=== PATIENT | female | born 1950 | race Caucasian/White ===

== ENCOUNTER 2017-02-26 01:20 | Emergency (ER) | payer MEDICARE, OTHER ==
[~2017-02-26] VITALS: Ht 162.6 cm; Wt 77.0 kg
[~2017-02-26 01:20] MED LIST: AGGR20025 PO; ALPR0.5T99 PO; CYCL-36 PO; LOSA50TA PO; MULTCAP2 PO; OMEGA PO; PERC5TAB12 PO; SIMV20 PO; VENL75TA91 PO; VITA400C28 PO
[2017-02-26 01:25] VITALS: BP 143/97; PULSE 91; RESP 18; TEMP 98.3; O2SAT 96
--- NOTE | 2017-02-26 01:45 | PD ---
HPI Chief Complaint: Injury Time Seen by Provider: 01:41 Travel History International Travel<30 days: No Contact w/Intl Traveler<30days: No Traveled to known affect area: No History of Present Illness HPI 66-year-old female presents to the emergency department by private transportation for right ankle injury. According the patient just prior to arrival to the emergency department around midnight she was adjusting cables on her TV and kneeling down. Patient reports that she attempted to stand upright her right ankle twisted underneath her and she heard a popping sensation. Patient experienced immediate pain and noticed swelling. Patient was able to crawl to the kitchen to get ice and applied an ice pack, crawl to the phone to call her daughter who came to the house to help her and crawl to the front door to let her daughter into the house. Patient has been nonweightbearing on the foot/ankle since the injury. Patient has had previous fracture of the left ankle and both wrists from falling-type injuries. Patient denies any fall they do to this episode. The patient rates her ankle pain 9/10 in intensity. PFSH Past Medical History Narrative Medical Arthritis, anxiety depression, high cholesterol, CVA w/R sided residua 2, hypertension, kidney stones, hysterectomy, appendectomy, tonsillectomy, orthopedic surgery; no tobacco use; nursing notes reviewed Arthritis: Yes Asthma: No Autoimmune Disease: No Blood Disorders: No Anxiety: Yes Depression: Yes Heart Rhythm Problems: No Cancer: No Cardiovascular Problems: No High Cholesterol: Yes Chest Pain: No Congestive Heart Failure: No COPD: No Cerebrovascular Accident: Yes (x 2) Diabetes: No Diminished Hearing: No Endocrine: No Glaucoma: No Genitourinary: No Headaches: No Hepatitis: No Hiatal Hernia: No Hypertension: Yes Immune Disorder: No Kidney Stones: Yes Musculoskeletal: Yes Neurologic: No Reproductive: No Respiratory: No Migraines: No Myocardial Infarction: No Renal Failure: No Seizures: No Sleep Apnea: No Thyroid Disease: No ?: Not Menopausal: Yes Past Surgical History Abdominal Surgery: Yes (hysterectomy ) Appendectomy: Yes Cardiac Surgery: No Ear Surgery: No Endocrine Surgery: No Eye Surgery: No Genitourinary Surgery: No Gynecologic Surgery: Yes (HYSTERECTOMY) Hysterectomy: Yes Oral Surgery: No Thoracic Surgery: No Tonsillectomy: Yes Other Surgery: Yes Social History Alcohol Use: No Tobacco Use: No Substance Use: No Allergies-Medications (Allergen,Severity, Reaction): Coded Allergies: Erythromycin (Verified Allergy, Mild, 02/26/17) Codeine (Verified Adverse Reaction, Severe, SEVERE N/V, 02/26/17) Demerol (Verified Adverse Reaction, Severe, SEVERE N/V, 02/26/17) Reported Meds & Prescriptions Reported Meds & Active Scripts Active Reported Vitamin D3 (Cholecalciferol) 1,000 Unit Chew 1,000 Units CHEW DAILY Effexor (Venlafaxine HCl) 75 Mg Tab 75 Mg PO DAILY Simvastatin 20 Mg Tab 20 Mg PO DAILY Percocet (Oxycodone-Acetaminophen) 5-325 mg Tab 1 Tab PO TID PRN Omeprazole 20 Mg Tab 20 Mg PO DAILY Multiple Vitamin 1 Tab 1 Tab PO DAILY Losartan (Losartan Potassium) 50 Mg Tab 50 Mg PO DAILY Aggrenox (Dipyridamole/Aspirin) 200-25 Mg Cap 1 Cap PO BID Flexeril (Cyclobenzaprine HCl) 10 Mg Tab 10 Mg PO HS Vitamin D (Cholecalciferol) 2,000 Unit Cap 1 Cap PO DAILY Alprazolam 0.5 Mg Tab 0.5 Mg PO HS Review of Systems Except as stated in HPI: all other systems reviewed are Neg General / Constitutional: No: Fever, Chills Eyes: No: Visual changes HENT: No: Headaches, Neck Pain Cardiovascular: No: Chest Pain or Discomfort, Palpitations, Diaphoresis Respiratory: No: Shortness of Breath, Pleuritic Pain Gastrointestinal: No: Abdominal Pain Genitourinary: No: Pelvic Pain, Flank Pain Musculoskeletal: Positive: Limited ROM (right ankle), Edema (right ankle), Pain (right ankle) Skin: No Rash Neurologic: Positive: Focal Abnormalities (chronic post cva weakness), No: Weakness Psychiatric: No: Anxiety, Depression Hematologic/Lymphatic: No: Easy Bruising Physical Exam Narrative GENERAL: Well-developed well-nourished female in no acute distress no respiratory distress; GCS 15. SKIN: Warm and dry. HEAD: Atraumatic. Normocephalic. EYES: Pupils equal and round. No scleral icterus. No injection or drainage. ENT: No nasal bleeding or discharge. Mucous membranes pink and moist. NECK: Trachea midline. No JVD. CARDIOVASCULAR: Regular rate and rhythm. RESPIRATORY: No accessory muscle use. Clear to auscultation. Breath sounds equal bilaterally. GASTROINTESTINAL: Abdomen soft, non-tender, nondistended. Hepatic and splenic margins not palpable. MUSCULOSKELETAL: Extremities without clubbing, cyanosis, or edema. No obvious deformities. Right ankle swelling with decreased range of motion and tenderness to palpation distally dorsalis pedis pulses 2+ to palpation capillary refill is brisk and less than 2 seconds sensory exam intact. NEUROLOGICAL: Awake and alert. No obvious cranial nerve deficits. Motor grossly within normal limits. Five out of 5 muscle strength in the arms and legs. Normal speech. PSYCHIATRIC: Appropriate mood and affect; insight and judgment normal. Data Data Last Documented VS Vital Signs Date Time Temp Pulse Resp B/P Pulse Ox O2 Delivery O2 Flow Rate FiO2 02/26/17 02:35 81 18 125/90 92 Room Air 02/26/17 01:25 98.3 Orders Ankle, Complete ([id number]) (02/26/17 ) Splint Or Brace Apply/Monitor (02/26/17 02:23) Crutches (02/26/17 02:23) Ice/Cold Pack (02/26/17 02:23) MDM Medical Decision Making Medical Screen Exam Complete: Yes Emergency Medical Condition: Yes Medical Record Reviewed: Yes Interpretation(s) R ankle xr: lateral malleolar fracture appears to have non-dsplaced linear fx of medial malleolus as well FINDINGS: Three view exam was performed of the right ankle. Mildly displaced bimalleolar fracture. Soft tissue swelling. No other fractures. Ankle mortise intact. CONCLUSION: 1. Bimalleolar fracture with slight displacement. Fransico Fall MD on February 26, 2017 at 2:19 Board Certified Radiologist. This report was verified electronically. Differential Diagnosis Sprain strain fracture subluxation dislocation Narrative Course Ice pack applied; imaging of the right ankle ordered Imaging study consistent with right ankle fracture visible at lateral malleolus distal fibula mild fractured findings for medial malleolus no significant displacement no dislocation; patient with daughter at bedside informed of imaging results Call placed to orthopedist Splint applied; patient informed of orthopedist recommendation for follow-up on Tuesday or Tuesday of this upcoming week in the office for close management of ankle and will most likely require surgical management. Patient is already prescribed Percocet 5/325 is a chronic medication for chronic pain syndrome therefore no additional narcotic medication prescribed for the patient. Patient with history of previous stroke is taking Aggrenox. Patient discussed in detail use of nonsteroidal anti-inflammatories and may use sparingly for pain associated with inflammation although is aware that can increased risk for bleeding so should use with caution and only as needed and not on a regular basis. Physician Communication Physician Communication call placed to ortho subcontract administrator --discussed with Delmar for dr Staples --will see in the office Tuesday or Tuesday --non-weight bearing Diagnosis Primary Impression: Closed right ankle fracture Qualified Code: S82.891A - Closed right ankle fracture, initial encounter Additional Impression: Bimalleolar fracture of right ankle Qualified Code: S82.841A - Bimalleolar fracture of right ankle, closed, initial encounter Referrals: Ernie Staples MD 2 days Call office Tuesday to schedule follow-up appointment on Tuesday or Tuesday of this upcoming week with Dr. Ernie Staples Patient Instructions: General Instructions Additional Instructions: Remain nonweightbearing to the right ankle/foot; use walker or other assistive device at all times to assist with ambulation Elevate right lower extremity use ice intermittently for first 12-24 hours to area of soft tissue swelling Return immediately to the emergency department for any concerns or change in condition Follow-up with orthopedist call office on Tuesday to schedule follow-up appointment on Tuesday or Tuesday of this upcoming week May take pain medication as prescribed as needed however avoid overuse of medication and do not combine with other medicines such as muscle relaxants and do not drink alcoholic beverages if taking pain medication; narcotic pain medication may be taken one tablet as often as every 4 hours as tolerated for pain greater than 8/10 in intensity or every 6 hours for pain greater than 6/10 intensity. May use ibuprofen/Advil/Motrin 400 mg to 600 milligrams as often as every 6 hours as needed for pain associated with inflammation; take this medication with antacid or with food; avoid prolonged use of nonsteroidal anti- inflammatory medications Med/Other Pt SpecificInfo: No Change to Meds Disposition: DISCHARGE HOME Condition: Stable Quynh Warren MD February 26, 2017 01:45
[2017-02-26] MEDS ORDERED: CYCL5TAB PO (02:16)
[2017-02-26] MEDS ORDERED: AGGR20025 PO (02:16)
[2017-02-26] MEDS ORDERED: MULTTAB67 PO (02:16)
[2017-02-26] MEDS ORDERED: PERC5TAB12 PO (02:16)
[2017-02-26] MEDS ORDERED: VITA200013 PO (02:16)
[2017-02-26] MEDS ORDERED: SIMV20TA PO (02:16)
[2017-02-26] MEDS ORDERED: ALPR0.5T3 PO (02:16)
[2017-02-26] MEDS ORDERED: CYCL1TAB29 PO (02:16)
[2017-02-26] MEDS ORDERED: CHOL100025 CHEW (02:16)
[2017-02-26] MEDS ORDERED: OMEP20TA PO (02:16)
[2017-02-26] MEDS ORDERED: VENL75TA PO (02:16)
[2017-02-26] MEDS ORDERED: LOSA50TA PO (02:16)
--- NOTE | 2017-02-26 02:21 | RADHPO ---
EXAM DATE/TIME: 02/26/2017 01:56 [facility] COMPARISON: No previous studies available for comparison. INDICATIONS : Right lateral ankle pain with swelling post twisting. MEDICAL HISTORY : None. SURGICAL HISTORY : None. ENCOUNTER: Initial ACUITY: 1 day PAIN SCORE: 9/10 LOCATION: Right lateral ankle FINDINGS: Three view exam was performed of the right ankle. Mildly displaced bimalleolar fracture. Soft tissue swelling. No other fractures. Ankle mortise intact. CONCLUSION: 1. Bimalleolar fracture with slight displacement. Fransico Fall MD on February 26, 2017 at 2:19 Board Certified Radiologist. This report was verified electronically.
[2017-02-26 02:35] VITALS: BP 125/90; PULSE 81; RESP 18; O2SAT 92
[2017-02-26 03:35] VITALS: BP 136/92; PULSE 80; RESP 18; O2SAT 94
== END 2017-02-26 03:45 | disposition home or self-care (01) ==
LOC: PHED 01:20
DX: S82.841A Displaced bimalleolar fracture of right lower leg, initial encounter for closed fracture (principal); E78.00 Pure hypercholesterolemia, unspecified; I10 Essential (primary) hypertension; F41.8 Other specified anxiety disorders; Z87.442 Personal history of urinary calculi; Z86.73 Personal history of transient ischemic attack (TIA), and cerebral infarction without residual deficits; X50.1XXA Overexertion from prolonged static or awkward postures, initial encounter; X50.9XXA Other and unspecified overexertion or strenuous movements or postures, initial encounter; Y93.89 Activity, other specified; Y92.018 Other place in single-family (private) house as the place of occurrence of the external cause; Y99.8 Other external cause status
CPT/HCPCS: 29515; 73610; 99283; E0113

== ENCOUNTER 2017-03-03 05:59 | Observation (INO) | payer MEDICARE ==
[~2017-03-03] VITALS: Ht 162.6 cm; Wt 74.5 kg
[~2017-03-03 05:59] MED LIST changes: +ALPR0.5T3 PO; -ALPR0.5T99 PO; +CHOL100025 CHEW; -CYCL-36 PO; +CYCL1TAB29 PO; -MULTCAP2 PO; +MULTTAB67 PO; -OMEGA PO; +OMEP20TA PO; -SIMV20 PO; +SIMV20TA PO; +VENL75TA PO; -VENL75TA91 PO; +VITA200013 PO; -VITA400C28 PO
[2017-03-03] MEDS ORDERED: ceFAZolin 2 GM PREMIX 50 ML IV SCH ×2 (07:15→17:00)
[2017-03-03] MEDS ORDERED: INSULIN HUMAN REGULAR 1,000 UNITS/10 ML VIAL SQ PRN (07:15)
[2017-03-03] MEDS ORDERED: CHLORHEXIDINE GLUCONATE 2 % 1 PACK (2 CLOTHS) TOPICAL PRN (07:15)
[2017-03-03] MEDS ORDERED: VANCOMYCIN 1000 MG/NS 250 ML (for <70 kg) IV SCH ×2 (07:15)
[2017-03-03] MEDS ORDERED: METOPROLOL TARTRATE 25 MG TAB PO PRN (07:15)
[2017-03-03] MEDS ORDERED: LACTATED RINGER'S 1000 ML IV PRN (07:15)
[2017-03-03] MEDS ORDERED: SODIUM CHLORID 0.9% 500 ML IV PRN (07:15)
[2017-03-03] MEDS ORDERED: POVIDONE IODINE 5% (ANTISEPSIS KIT) 4 APPLICATIONS EACH NARE PRN (07:15)
[2017-03-03] MEDS ORDERED: CHLORHEXIDINE GLUCONATE 4% SOLN 120 ML BTL TOPICAL SCH (07:15)
[2017-03-03 07:50] VITALS: BP 158/94; PULSE 64; RESP 20; TEMP 97.5; O2SAT 100
[2017-03-03] MEDS ORDERED: BUPIVACAINE/EPINEPHRINE 0.25% 50 ML VIAL ONE (08:16)
[2017-03-03] MEDS ORDERED: GENTAMICIN SULFATE 80 MG/2 ML VIAL ONE (08:17)
[2017-03-03] MEDS ORDERED: CO Q100C9 PO (08:25)
[2017-03-03] MEDS ORDERED: ACETAMINOPHEN 1000 MG/100 ML VIAL IV ONE (08:54)
[2017-03-03] MEDS ORDERED: MIDAZOLAM HCL 5 MG/5 ML VIAL ONE (08:54)
[2017-03-03] MEDS ORDERED: DEXAMETHASONE SOD PHOS 4 MG/ML VIAL ONE (08:55)
[2017-03-03] MEDS ORDERED: FAMOTIDINE 20 MG/2 ML VIAL ONE (08:55)
--- NOTE | 2017-03-03 10:35 | PD.OP ---
cc: Ernie Staples MD Operative Report Date of Surgery: March 03, 2017 Preoperative Diagnosis: Displaced right ankle bimalleolar fracture Postoperative Diagnosis: Procedure: Open reduction internal fixation bimalleolar ankle fracture Anesthesia: Gen. Surgeon: Ernie Staples Cleaners(s): YVON Boss PA-C The surgical procedure was assisted by my physician registered medical assistant. My P.A. presence was necessary throughout this case for the manipulation and positioning of the surgical extremity. My P.A. was assisting me throughout the duration of this procedure. The skill set of a physician registered medical assistant was medically necessary to complete this procedure. During the surgical case the dialysis equipment technician was working at the back table and the physician registered medical assistant was directly assisting me. Operation and Findings: Patient was seen and evaluated preoperatively and found to have a displaced right bimalleolar ankle fracture. Informed consent was obtained after a detailed discussion of risk and benefits of surgery. The operative site was marked. Patient was brought to the OR, placed on the OR table, and given IV sedation and general endotracheal anesthesia. IV antibiotics were given preoperatively. A timeout procedure was performed. The left leg was prepped with alcohol followed by Hibiclens and draped in the usual sterile fashion. Attention was turned towards the distal fibula. A four-inch incision was made over the distal fibula. The subcutaneous tissue was dissected with Bovie. The fracture site was visualized. The fracture site was cleaned with curets. The fracture was now reduced. The fracture keyed into anatomic alignment. K-wires were used to h old provisional fixation. A lag screw was placed to compress fracture. A ITS plate was selected. The plate was provisionally held to bone with K-wires. 3.5 cortical screws were used to compress the plate to bone. Multiple screws were placed above and below the fracture. Next attention was turned towards the medial malleolus. The medial malleolus supposed through a 3 cm incision. Saphenous vein was retracted. Fracture was visualized. Fracture was cleaned with curettes. Fracture was now reduced and keyed into anatomic alignment. K wires were used to hold provisional fixation. 2 guidepins for the 4.0 cannulated screws were placed in a retrograde fashion across the fracture. Fluoroscopy was used to confirm guidepin placement. Cannulated drill was placed over the guidepin. 2 appropriate length screws were now placed. Good compression was applied. Fluoroscopy confirmed well aligned fracture with well-placed hardware. Next, attention was turned to the syndesmosis. The syndesmosis was stressed. There was no widening of the syndesmosis with external rotation of the ankle. Incisions were thoroughly irrigated. The subcutaneous tissue was closed with 3- 0 Vicryl and the skin was closed with 3-0 nylon. Sterile dressings were applied. A well molded well-padded splint was applied. The patient was transferred to Recovery in stable condition. Needle and sponge counts were correct. Ernie Staples MD March 03, 2017 10:35
[2017-03-03] MEDS ORDERED: Post-op Orders (for Pharmacy) MISC XX ONE (10:59)
[2017-03-03] MEDS ORDERED: *morphine SULFATE 8 MG/ML PERIprocedure ONLY ONE ×2 (11:06→11:12)
[2017-03-03] MEDS ORDERED: *HYDROmorphone PF 1 MG VIAL PERIprocedural Use ONLY ONE ×2 (11:20→11:30)
[2017-03-03] MEDS ORDERED: DO NOT ADM ANY ANTICOAGULANT DRUGS PRN (11:30)
--- NOTE | 2017-03-03 13:57 | RADRPT ---
EXAM DATE/TIME: 03/03/2017 10:20 [facility] COMPARISON: No previous studies available for comparison. INDICATIONS : ORIF right ankle. MEDICAL HISTORY : None. SURGICAL HISTORY : None. ENCOUNTER: Subsequent ACUITY: 4 - 6 days PAIN SCORE: Non-responsive. LOCATION: Right ankle. CONCLUSION: Fluoroscopic images during placement of 2 screws through the medial malleolus and plate and screws al cisco the distal fibula. Fransico Fall MD on March 03, 2017 at 13:55 Board Certified Radiologist. This report was verified electronically.
[2017-03-03] MEDS ORDERED: ONDANSETRON HCL 4 MG/2 ML VIAL IV PUSH ONE (14:00)
[2017-03-03] MEDS ORDERED: LACTATED RINGER'S 1000 ML INJ 1,000 ML IV ONE (14:00)
[2017-03-03] MEDS ORDERED: PROPOFOL 200 MG/20 ML AMP IV ONE (14:00)
[2017-03-03 15:26] VITALS: BP 107/59; PULSE 83; RESP 17; TEMP 96.6; O2SAT 95
--- NOTE | 2017-03-03 15:47 | EKG ---
Date Performed: 03/03/2017 Time Performed: 07:10:19 PTAGE: 66 years EKG: Sinus rhythm LOW QRS VOLTAGE IN PRECORDIAL LEADS BORDERLINE ECG PREVIOUS TRACING : 06/10/2014 11.16 Compared to prior tracing no significant change DOCTOR: Valerio Calvillo Interpretating Date/Time 03/03/2017 15:44:48
[2017-03-03 16:30] VITALS: O2SAT 97
[2017-03-03] MEDS: oxyCODONE/ACETAMINOPHEN 5 MG/325 MG TAB PO PRN (17:52)
[2017-03-03] MEDS: ONDANSETRON HCL 4 MG/2 ML VIAL IVP PRN (20:02)
[2017-03-03 20:20] VITALS: BP 106/66; PULSE 86; RESP 17; TEMP 97; O2SAT 96
[2017-03-03] MEDS: CYCLOBENZAPRINE HCL 10 MG TAB PO SCH (22:43)
[2017-03-03] MEDS: ALPRAZolam 0.5 MG TAB PO SCH (22:43)
[2017-03-03] MEDS: DIPYRIDAMOLE/ASPIRIN 200 MG/25 MG CAP PO SCH (22:43)
[2017-03-04] VITALS (7 sets, daily range): BP systolic 112–147; BP diastolic 69–89; PULSE 72–90; RESP 16–18; TEMP 96.4–99.1; O2SAT 94–100
[2017-03-04] MEDS: oxyCODONE/ACETAMINOPHEN 5 MG/325 MG TAB PO PRN ×4 (00:49→20:43)
[2017-03-04] MEDS: ONDANSETRON HCL 4 MG/2 ML VIAL IVP PRN ×2 (03:30→08:25)
[2017-03-04] MEDS: MORPHINE SULFATE 4 MG/ML INJ IV PUSH PRN (03:30)
--- NOTE | 2017-03-04 06:44 | PD.ORT.PN ---
Subjective Subjective Remarks POD 1 s/p ORIF right ankle doing well. reports soreness in ankle. has been out of bed to chair. Objective Vitals Vital Signs Date Time Temp Pulse Resp B/P Pulse Ox O2 Delivery O2 Flow Rate FiO2 03/04/17 04:28 98.3 90 17 147/81 96 03/04/17 00:13 97.6 84 17 130/86 100 03/03/17 21:10 Nasal Cannula 2.00 03/03/17 20:20 97.0 86 17 106/66 96 03/03/17 16:30 97 Nasal Cannula 2.00 03/03/17 15:26 96.6 83 17 107/59 95 03/03/17 13:00 88 16 104/64 98 Nasal Cannula 2 03/03/17 12:00 87 16 110/64 95 Nasal Cannula 2 03/03/17 11:45 88 16 111/65 96 Nasal Cannula 2 03/03/17 11:30 91 16 134/82 95 Nasal Cannula 2 03/03/17 11:15 91 16 152/92 97 Nasal Cannula 2 03/03/17 11:00 97.2 83 16 145/94 99 Nasal Cannula 4 03/03/17 07:50 97.5 64 20 158/94 100 I/O 03/03/17 03/03/17 03/03/17 03/04/17 03/04/17 03/04/17 06:59 14:59 22:59 06:59 14:59 22:59 Intake Total 1850 ml 540 ml Output Total 50 ml Balance 1800 ml 540 ml Intake Oral 440 ml IV Total 850 ml 100 ml Other 1000 ml Output Estimated Blood Loss 50 ml # Voids 1 # Bowel Movements 0 Objective Remarks RLE: +short leg splint. intact. NVI. Assessment & Plan Assessment and Plan 1) Right Ankle fx s/p ORIF - POD 1 -NWB -maintain splint -elevate -gait training with walker -CM for rehab placement -ok for DC to rehab when bed available -f/u with Bernardo or MELITA in 2 weeks Delmar Beauchamp March 04, 2017 06:44
[2017-03-04] MEDS ORDERED: PERC7.5T13 PO (06:47)
[2017-03-04] MEDS ORDERED: CALCTAB19 PO (06:47)
[2017-03-04] MEDS ORDERED: ERGO1CAP30 PO (06:47)
[2017-03-04] MEDS ORDERED: WALKER/ADULT/FO1 MIS (06:47)
[2017-03-04] MEDS: CHOLECALCIFEROL (VIT D3) 1000 UNIT TAB PO SCH (08:16)
[2017-03-04] MEDS: PANTOPRAZOLE SOD 20 MG DELAYED RELEASE TAB PO SCH (08:16)
[2017-03-04] MEDS: VENLAFAXINE HCL 75 MG TAB PO SCH (08:16)
[2017-03-04] MEDS: PRAVASTATIN SOD 40 MG TAB PO SCH (08:16)
[2017-03-04] MEDS: LOSARTAN 50 MG TAB PO SCH (08:17)
[2017-03-04] MEDS: DIPYRIDAMOLE/ASPIRIN 200 MG/25 MG CAP PO SCH ×2 (08:17→20:43)
[2017-03-04] MEDS: ALPRAZolam 0.5 MG TAB PO SCH (20:44)
[2017-03-04] MEDS: CYCLOBENZAPRINE HCL 10 MG TAB PO SCH (23:23)
[2017-03-05] VITALS: BP 153/94; PULSE 84; RESP 17; TEMP 99.6; O2SAT 94
[2017-03-05] MEDS: oxyCODONE/ACETAMINOPHEN 5 MG/325 MG TAB PO PRN ×4 (01:07→14:27)
[2017-03-05] MEDS: ONDANSETRON HCL 4 MG/2 ML VIAL IVP PRN ×2 (04:34→10:02)
[2017-03-05] MEDS: MORPHINE SULFATE 4 MG/ML INJ IV PUSH PRN (04:34)
[2017-03-05 05:19] VITALS: BP 143/93
[2017-03-05 08:00] VITALS: BP 127/87; PULSE 73; RESP 16; TEMP 96.7; O2SAT 97
[2017-03-05] MEDS: LOSARTAN 50 MG TAB PO SCH (10:02)
[2017-03-05] MEDS: PANTOPRAZOLE SOD 20 MG DELAYED RELEASE TAB PO SCH (10:02)
[2017-03-05] MEDS: CHOLECALCIFEROL (VIT D3) 1000 UNIT TAB PO SCH (10:02)
[2017-03-05] MEDS: DIPYRIDAMOLE/ASPIRIN 200 MG/25 MG CAP PO SCH (10:03)
[2017-03-05] MEDS: PRAVASTATIN SOD 40 MG TAB PO SCH (10:03)
[2017-03-05] MEDS: VENLAFAXINE HCL 75 MG TAB PO SCH (10:03)
--- NOTE | 2017-03-05 10:13 | PD.ORT.PN ---
Subjective Post Op Day #: 2 Subjective Remarks Patient OOB in chair with c/o nausea. Patient is having minimal pain. Objective Vitals Vital Signs Date Time Temp Pulse Resp B/P Pulse Ox O2 Delivery O2 Flow Rate FiO2 03/05/17 08:00 96.7 73 16 127/87 97 03/05/17 05:19 143/93 03/05/17 00:00 99.6 84 17 153/94 94 03/04/17 20:00 96.4 72 17 126/89 94 03/04/17 16:00 97.9 80 16 140/70 96 03/04/17 12:17 98.4 80 18 112/69 98 I/O 03/04/17 03/04/17 03/04/17 03/05/17 03/05/17 03/05/17 07:00 15:00 23:00 07:00 15:00 23:00 Intake Total 120 ml 1080 ml 240 ml 240 ml Balance 120 ml 1080 ml 240 ml 240 ml Intake Oral 120 ml 1080 ml 240 ml 240 ml # Voids 1 4 2 1 # Bowel Movements 0 0 0 Objective Remarks RLE: +short leg splint. intact. NVI. BCR X5. + SILT X 5 Assessment & Plan Ortho Post Op Day #: 2 Problem List: Assessment and Plan 1) Right Ankle fx s/p ORIF - POD 2 -NWB -maintain splint -elevate -gait training with walker -CM for rehab placement -ok for DC to rehab when bed available (Likely Tuesday) -f/u with Bernardo or MELITA in 2 weeks Luis Whitley March 05, 2017 10:13
[2017-03-05 12:00] VITALS: BP 154/107; PULSE 77; RESP 18; TEMP 96.6; O2SAT 98
[2017-03-05] MEDS ORDERED: BISACODYL 10 MG SUPP RECTAL PRN (12:45)
== END 2017-03-05 15:34 ==
LOC: HSDC 05:59 → HSDI 10:33 → N06B 13:17
PROVIDERS: ADMIT Orthopaedic Surgery Orthopaedic Trauma; ATTEND Orthopaedic Surgery Orthopaedic Trauma
DX: S82.841A Displaced bimalleolar fracture of right lower leg, initial encounter for closed fracture (principal); I10 Essential (primary) hypertension; Z86.73 Personal history of transient ischemic attack (TIA), and cerebral infarction without residual deficits; Z85.828 Personal history of other malignant neoplasm of skin; X58.XXXA Exposure to other specified factors, initial encounter
CPT/HCPCS: 27814; 73600; 76000; 93005; 94150; 97110; 97116; 97162; 97530; C1713; G0378; J0131; J0690; J1100; J1170; J1580; J2250; J2270; J2405; J3010; J3370; J7050; J7120

== ENCOUNTER 2017-10-24 09:48 | Emergency (ER) | payer MEDICARE, MEDICAID ==
[~2017-10-24] VITALS: Ht 162.6 cm; Wt 76.0 kg
[~2017-10-24 09:48] MED LIST changes: +CALCTAB19 PO; -CHOL100025 CHEW; +CO Q100C9 PO; +CYCL10TA PO; -CYCL1TAB29 PO; -OMEP20TA PO; +OMEP20TA93 PO; -PERC5TAB12 PO; +PERC7.5T13 PO; +VITA500012 PO; +WALKER/ADULT/FO1 MIS
[2017-10-24 09:50] VITALS: BP 138/81; PULSE 92; RESP 18; TEMP 99.9; O2SAT 95
[2017-10-24] MEDS ORDERED: CYCL5TAB PO (10:12)
[2017-10-24] MEDS ORDERED: OMEGCAP PO (10:12)
[2017-10-24] MEDS ORDERED: ASPIRIN DIPYRIDAMOLE PO (10:12)
[2017-10-24] MEDS ORDERED: AGGR20025 PO (10:12)
--- NOTE | 2017-10-24 10:23 | PD ---
HPI Chief Complaint: Cold / Flu Symptoms Time Seen by Provider: 10:23 Travel History International Travel<30 days: No Contact w/Intl Traveler<30days: No Traveled to known affect area: No History of Present Illness HPI 66-year-old female came to the emergency room with history of cough for past 4 days. She says the cough is getting more and more productive and not getting better. She has been feeling weaker. No history of vomiting or diarrhea. Her daughter has been sick with the same symptoms for 2 weeks now. Her daughter is here with her and has informed me about that on multiple occasions during my conversation with the patient. Vital signs are stable. She does not have COPD and does not require inhalers. She is not a smoker. [facility] Past Medical History Narrative Medical List of her past medical, surgical, social and family history is reviewed from the nursing note. Hx Anticoagulant Therapy: Yes (AGGRENOX) Arthritis: Yes Asthma: No Autoimmune Disease: No Blood Disorders: No Anxiety: Yes Depression: Yes Heart Rhythm Problems: No Cancer: No Cardiovascular Problems: No High Cholesterol: Yes Chest Pain: No Congestive Heart Failure: No COPD: No Cerebrovascular Accident: Yes (CVA X 3) Diabetes: No Diminished Hearing: No Endocrine: No Glaucoma: No Genitourinary: No Headaches: No Hepatitis: No Hiatal Hernia: No Hypertension: Yes Immune Disorder: No Kidney Stones: Yes Medical other: Yes (STROKE; ARTHRITIS) Musculoskeletal: No (NECK) Neurologic: No (CVA, NECK) Psychiatric: No Reproductive: No Respiratory: No Migraines: No Myocardial Infarction: No Renal Failure: No Seizures: No Sleep Apnea: No Thyroid Disease: No Tetanus Vaccination: > 5 Years Influenza Vaccination: No ?: Not Menopausal: Yes : 4 Para: 1 Miscarriage: 3 Past Surgical History Abdominal Surgery: Yes (hysterectomy ) Appendectomy: Yes Cardiac Surgery: No Ear Surgery: No Endocrine Surgery: No Eye Surgery: No Genitourinary Surgery: No Gynecologic Surgery: Yes (HYSTERECTOMY) Hysterectomy: Yes Joint Replacement: No (LL EXTREMITY ROBSON/SCREWS, L GREAT TOE ARTIFICIAL JOINT, ) Neurologic Surgery: No Oral Surgery: Yes (TONSILLS) Thoracic Surgery: No Tonsillectomy: Yes Other Surgery: Yes Social History Alcohol Use: Yes (1-2 GLASSES WINE DAILY) Tobacco Use: No (1984) Substance Use: No Allergies-Medications (Allergen,Severity, Reaction): Coded Allergies: erythromycin base (Unverified Allergy, Severe, Rash, 10/24/17) codeine (Unverified Adverse Reaction, Severe, SEVERE N/V, 10/24/17) meperidine (Unverified Adverse Reaction, Severe, SEVERE N/V, 10/24/17) Comments List of her allergies reviewed from the nursing note. Reported Meds & Prescriptions Reported Meds & Active Scripts Active Ventolin Hfa 18 GM Inh (Albuterol Sulfate) 90 Mcg/Act Aer 2 Puff INH Q4-6H PRN Zithromax Z-Tomy (Azithromycin) 250 Mg Dspk 250 Mg PO DIRECTED 500 MG (2 tabs) day 1, then 1 tab days 2-5. Percocet (Oxycodone-Acetaminophen) 7.5-325 mg Tab 1 Tab PO Q4H PRN Reported [place]-3 Fish Oil/Vitamin (Fish Oil-Cholecalciferol) 1,000-1,000 Mg Cap 1,500 Mg PO DAILY Aggrenox (Dipyridamole/Aspirin) 200-25 Mg Cap 1 Cap PO BID Flexeril (Cyclobenzaprine HCl) 5 Mg Tab 5 Mg PO TID Co Q 10 (Coenzyme Q10 (Ubidecarenone)) 100 Mg Cap 100 Mg PO DAILY Effexor (Venlafaxine HCl) 75 Mg Tab 75 Mg PO DAILY Simvastatin 20 Mg Tab 20 Mg PO DAILY Omeprazole 20 Mg Tab 20 Mg PO DAILY Multiple Vitamin 1 Tab 1 Tab PO DAILY Losartan (Losartan Potassium) 50 Mg Tab 50 Mg PO DAILY Vitamin D (Cholecalciferol) 2,000 Unit Cap 1 Cap PO DAILY Alprazolam 0.5 Mg Tab 0.5 Mg PO HS Narrative Medication List of her home medications reviewed from the nursing note. Review of Systems Except as stated in HPI: all other systems reviewed are Neg Respiratory: Positive: Cough Physical Exam Narrative GENERAL: Awake, alert, mild distress, anxious SKIN: Focused skin assessment warm/dry. HEAD: Atraumatic. Normocephalic. EYES: Pupils equal and round. No scleral icterus. No injection or drainage. ENT: No nasal bleeding or discharge. Mucous membranes pink and moist. NECK: Trachea midline. No JVD. CARDIOVASCULAR: Regular rate and rhythm. No murmur appreciated. RESPIRATORY: No accessory muscle use. Clear to auscultation. Breath sounds equal bilaterally. GASTROINTESTINAL: Abdomen soft, non-tender, nondistended. Hepatic and splenic margins not palpable. MUSCULOSKELETAL: No obvious deformities. No clubbing. No cyanosis. No edema. NEUROLOGICAL: Awake and alert. No obvious cranial nerve deficits. Motor grossly within normal limits. Normal speech. PSYCHIATRIC: Appropriate mood and affect; insight and judgment normal. Data Data Last Documented VS Orders Orders Chest, Pa & Lat (10/24/17 ) Influenzae A/B Antigen (10/24/17 10:43) Complete Blood Count With Diff (10/24/17 10:43) Basic Metabolic Panel (Bmp) (10/24/17 10:43) Blood Culture (10/24/17 10:43) Albuterol Neb (Albuterol Neb) (10/24/17 10:45) Ed Discharge Order (10/24/17 12:31) Labs Laboratory Tests Test 10/24/17 11:15 White Blood Count 9.9 TH/MM3 Red Blood Count 3.97 MIL/MM3 Hemoglobin 12.6 GM/DL Hematocrit 37.5 % Mean Corpuscular Volume 94.3 FL Mean Corpuscular Hemoglobin 31.8 PG Mean Corpuscular Hemoglobin Concent 33.7 % Red Cell Distribution Width 12.1 % Platelet Count 190 TH/MM3 Mean Platelet Volume 7.9 FL Neutrophils (%) (Auto) 64.6 % Lymphocytes (%) (Auto) 23.2 % Monocytes (%) (Auto) 9.2 % Eosinophils (%) (Auto) 2.4 % Basophils (%) (Auto) 0.6 % Neutrophils # (Auto) 6.4 TH/MM3 Lymphocytes # (Auto) 2.3 TH/MM3 Monocytes # (Auto) 0.9 TH/MM3 Eosinophils # (Auto) 0.2 TH/MM3 Basophils # (Auto) 0.1 TH/MM3 CBC Comment AUTO DIFF Differential Comment AUTO DIFF CONFIRMED Blood Urea Nitrogen 11 MG/DL Creatinine 0.81 MG/DL Random Glucose 93 MG/DL Calcium Level 9.1 MG/DL Sodium Level 138 MEQ/L Potassium Level 4.1 MEQ/L Chloride Level 101 MEQ/L Carbon Dioxide Level 30.6 MEQ/L Anion Gap 6 MEQ/L Estimat Glomerular Filtration Rate 71 ML/MIN MDM Medical Decision Making Medical Screen Exam Complete: Yes Emergency Medical Condition: Yes Medical Record Reviewed: Yes Differential Diagnosis Bronchitis, pneumonia, influenza Narrative Course 12:35 PM blood test results of back and within normal limit. Chest x-rays negative for any acute findings as per the radiologist. Patient was given 1 albuterol treatment. She says this has improved her cough. I'll discharge her home given her symptoms with a Z-Tomy for bronchitis and albuterol inhaler. I explained to the patient all this and answered all her questions to the best of my ability. Procedures EKG Prior to Arrival: No Diagnosis Primary Impression: Cough Additional Impression: Bronchitis Referrals: Primary Care Physician Additional Instructions: Take the medication as per the prescription direction. Take the inhaler 2 puffs every 4-6 hours for next 48 hours. Return to the ER if condition worsens or any other new concerns. Otherwise follow-up with your primary care. Med/Other Pt SpecificInfo: Prescription(s) given Scripts Albuterol 18 GM Inh (Ventolin Hfa 18 GM Inh) 90 Mcg/Act Aer 2 PUFF INH Q4-6H Y for SHORTNESS OF BREATH, #1 INHALER 0 Refills Prov: Lona Hairston MD 10/24/17 Azithromycin (Zithromax Z-Tomy) 250 Mg Dspk 250 MG PO DIRECTED for Infection, #1 DSPK 0 Refills 500 MG (2 tabs) day 1, then 1 tab days 2-5. Prov: Lona Hairston MD 10/24/17 Disposition: 01 DISCHARGE HOME Condition: Stable Lona Hairston MD Oct 24, 2017 10:23
[2017-10-24] MEDS ORDERED: RESP: ALBUTEROL 2.5 MG/3 ML NEB (SCH) INH ONE (10:45)
--- NOTE | 2017-10-24 11:11 | RADRPT ---
EXAM DATE/TIME: 10/24/2017 10:47 [facility] COMPARISON: No previous studies available for comparison. INDICATIONS : Cough, congestion. MEDICAL HISTORY : Hypertension. SURGICAL HISTORY : None. ENCOUNTER: Initial ACUITY: 4 - 6 days PAIN SCORE: 0/10 LOCATION: Left chest FINDINGS: PA and lateral views of the chest demonstrate the lungs to be symmetrically aerated without evidence of mass, infiltrate or effusion. The cardiomediastinal contours are unremarkable. Bilateral breast implants are present. Spurs are seen in the thoracic spine. CONCLUSION: No acute disease. Rigo Woods MD on October 24, 2017 at 11:09 Board Certified Radiologist. This report was verified electronically.
[2017-10-24 11:26] LABS: AUTOMATED NEUTROPHIL # 6.4 TH/MM3 (1.8-7.7); BASOPHIL # 0.1 TH/MM3 (0-0.2); BASOPHIL % 0.6 % (0.0-2.0); EOSINOPHIL # 0.2 TH/MM3 (0-0.4); EOSINOPHIL % 2.4 % (0.0-4.0); HEMATOCRIT 37.5 % (35.0-46.0); HEMOGLOBIN 12.6 GM/DL (11.6-15.3); LYMPH % 23.2 % (9.0-44.0); LYMPHOCYTE # 2.3 TH/MM3 (1.0-4.8); MEAN CELL VOLUME 94.3 FL (80.0-100.0); MEAN CORPUSCULAR HEMOGLOBIN 31.8 PG (27.0-34.0); MEAN CORPUSCULAR HGB CONC 33.7 % (32.0-36.0); MEAN PLATELET VOLUME 7.9 FL (7.0-11.0); MONO % 9.2 % (0.0-8.0); MONOCYTE # 0.9 TH/MM3 (0-0.9); NEUT % 64.6 % (16.0-70.0); PLATELET COUNT 190 TH/MM3 (150-450); RED BLOOD COUNT 3.97 MIL/MM3 (4.00-5.30); RED CELL DISTRIBUTION WIDTH 12.1 % (11.6-17.2); WHITE BLOOD COUNT 9.9 TH/MM3 (4.0-11.0)
[2017-10-24 11:42] LABS: BICARBONATE 30.6 MEQ/L (21.0-32.0)
[2017-10-24 11:43] LABS: CALCIUM 9.1 MG/DL (8.5-10.1)
[2017-10-24 11:46] LABS: CREATININE 0.81 MG/DL (0.50-1.00)
[2017-10-24 12:26] VITALS: BP 139/84; PULSE 89; RESP 16; O2SAT 94
[2017-10-24] MEDS ORDERED: VENTAER INH (12:31)
[2017-10-24] MEDS ORDERED: ZITHTAB PO (12:31)
[2017-10-25] MEDS ORDERED: AGGR20025 PO (12:18)
== END 2017-10-24 12:51 | disposition home or self-care (01) ==
LOC: PHED 09:48
DX: R05 Cough (principal); J40 Bronchitis, not specified as acute or chronic; R53.1 Weakness; I10 Essential (primary) hypertension; M19.90 Unspecified osteoarthritis, unspecified site; E78.00 Pure hypercholesterolemia, unspecified; F41.8 Other specified anxiety disorders
CPT/HCPCS: 71046; 80048; 85025; 87040; 87804; 94664; 99284; J7613

== ENCOUNTER 2018-02-16 18:17 | Observation (INO) | payer MEDICARE, MEDICAID ==
[~2018-02-16] VITALS: Ht 170.2 cm; Wt 77.7 kg
[~2018-02-16 18:17] MED LIST changes: -CALCTAB19 PO; -CYCL10TA PO; +CYCL5TAB PO; +OMEGCAP PO; +VENTAER INH; -VITA500012 PO; -WALKER/ADULT/FO1 MIS; +ZITHTAB PO
[2018-02-16 18:34] VITALS: BP 158/94; PULSE 130; RESP 20; TEMP 99.2; O2SAT 94
--- NOTE | 2018-02-16 18:51 | PD ---
HPI Chief Complaint: Musculoskeletal Complaint Time Seen by Provider: 18:44 Travel History International Travel<30 days: No Contact w/Intl Traveler<30days: No Traveled to known affect area: No History of Present Illness HPI The patient 67 years old. She complains of pain in the right ankle. She underwent orthopedic surgery of the right ankle 10 weeks prior. The sutures were removed 2 days prior. Yesterday was a normal day for her however she experienced pain today along the lateral side primarily leading to the ER evaluation. No fever. Pain is constant. She denies interval trauma/ unintentional use/injury otherwise. Pain is worse with palpation. PFSH Past Medical History Hx Anticoagulant Therapy: Yes (AGGRENOX) Arthritis: Yes Asthma: No Autoimmune Disease: No Blood Disorders: No Anxiety: Yes Depression: Yes Heart Rhythm Problems: No Cancer: No Cardiovascular Problems: No High Cholesterol: Yes Chest Pain: No Congestive Heart Failure: No COPD: No Cerebrovascular Accident: Yes (CVA X 3) Diabetes: No Diminished Hearing: No Endocrine: No Glaucoma: No Genitourinary: No Headaches: No Hepatitis: No Hiatal Hernia: No Hypertension: Yes Immune Disorder: No Kidney Stones: Yes Medical other: Yes (STROKE; ARTHRITIS) Psychiatric: No Reproductive: No Respiratory: No Migraines: No Myocardial Infarction: No Renal Failure: No Seizures: No Sleep Apnea: No Thyroid Disease: No Influenza Vaccination: No ?: Not Menopausal: Yes : 4 Para: 1 Miscarriage: 3 Past Surgical History Abdominal Surgery: Yes (hysterectomy ) Appendectomy: Yes Cardiac Surgery: No Ear Surgery: No Endocrine Surgery: No Eye Surgery: No Genitourinary Surgery: No Gynecologic Surgery: Yes (HYSTERECTOMY) Hysterectomy: Yes Neurologic Surgery: No Oral Surgery: Yes (TONSILLS) Thoracic Surgery: No Tonsillectomy: Yes Other Surgery: Yes Social History Alcohol Use: Yes (1-2 GLASSES WINE DAILY) Tobacco Use: No (1984) Substance Use: No Allergies-Medications (Allergen,Severity, Reaction): Coded Allergies: erythromycin base (Unverified Allergy, Severe, Rash, 02/16/18) codeine (Unverified Adverse Reaction, Severe, SEVERE N/V, 02/16/18) meperidine (Unverified Adverse Reaction, Severe, SEVERE N/V, 02/16/18) Reported Meds & Prescriptions Reported Meds & Active Scripts Active Percocet (Oxycodone-Acetaminophen) 7.5-325 mg Tab 1 Tab PO Q4H PRN Reported Biotin 5 Mg Cap 5 Mg PO DAILY NEB Rosuvastatin (Rosuvastatin Calcium) 20 Mg Tab 20 Mg PO DAILY [place]-3 Fish Oil/Vitamin (Fish Oil-Cholecalciferol) 1,000-1,000 Mg Cap 1,500 Mg PO DAILY Aggrenox (Dipyridamole/Aspirin) 200-25 Mg Cap 1 Cap PO BID Flexeril (Cyclobenzaprine HCl) 5 Mg Tab 5 Mg PO TID Co Q 10 (Coenzyme Q10 (Ubidecarenone)) 100 Mg Cap 200 Mg PO DAILY Effexor (Venlafaxine HCl) 75 Mg Tab 75 Mg PO DAILY Omeprazole 20 Mg Tab 20 Mg PO DAILY Multiple Vitamin 1 Tab 1 Tab PO DAILY Losartan (Losartan Potassium) 50 Mg Tab 50 Mg PO DAILY Vitamin D (Cholecalciferol) 2,000 Unit Cap 1 Cap PO DAILY Alprazolam 0.5 Mg Tab 0.5 Mg PO HS Review of Systems Except as stated in HPI: all other systems reviewed are Neg General / Constitutional: No: Fever Physical Exam Narrative GENERAL: 76-year-old female pleasant well-nourished well-developed minimal distress Vital Signs Date Time Temp Pulse Resp B/P (MAP) Pulse Ox O2 Delivery O2 Flow Rate FiO2 02/16/18 18:34 99.2 130 20 158/94 (115) 94 SKIN: Warm and dry. HEAD: Atraumatic. Normocephalic. EYES: Pupils equal and round. No scleral icterus. No injection or drainage. ENT: No nasal bleeding or discharge. Mucous membranes pink and moist. NECK: Trachea midline. No JVD. CARDIOVASCULAR: Irregular. Tachycardia approximately 130. RESPIRATORY: No accessory muscle use. Clear to auscultation. Breath sounds equal bilaterally. GASTROINTESTINAL: Abdomen soft, non-tender, nondistended. Hepatic and splenic margins not palpable. MUSCULOSKELETAL: There is extension deformity at the right ankle with well- healed surgical incisions along the medial and lateral malleolus. On the right side is about 10 cm long with minimal adjacent erythema no purulent discharge no fluctuance. Along the lateral aspect of the mortise there is significant tenderness. The medial side is about 5 cm long with trace appropriate erythematous change. NEUROLOGICAL: There is partial paralysis of the right side. Speech memory mentation normal. Cranial nerves are normal. PSYCHIATRIC: Appropriate mood and affect; insight and judgment normal. Data Data Last Documented VS Vital Signs Date Time Temp Pulse Resp B/P (MAP) Pulse Ox O2 Delivery O2 Flow Rate FiO2 02/16/18 19:14 168/113 (131) 02/16/18 19:08 103 18 98 Room Air 02/16/18 18:34 99.2 Orders Orders Ankle, Complete ([id number]) (02/16/18 18:51) Ice/Cold Pack (02/16/18 18:51) Electrocardiogram (02/16/18 18:53) Basic Metabolic Panel (Bmp) (02/16/18 18:53) Ckmb (Isoenzyme) Profile (02/16/18 18:53) Complete Blood Count With Diff (02/16/18 18:53) Magnesium (Mg) (02/16/18 18:53) Prothrombin Time / Inr (Pt) (02/16/18 18:53) Act Partial Throm Time (Ptt) (02/16/18 18:53) Troponin I (02/16/18 18:53) Chest, Single Ap (02/16/18 18:53) Ecg Monitoring (02/16/18 18:53) Iv Access Insert/Monitor (02/16/18 18:53) Oximetry (02/16/18 18:53) Oxygen Administration (02/16/18 18:53) Sodium Chloride 0.9% Flush (Ns Flush) (02/16/18 19:00) Oxycodone-Acetamin 5-325 Mg (Percocet (02/16/18 19:00) Admit Order (Ed Use Only) (02/16/18 ) Brick Carrier / Telemetry EDUARDO.Q8H (02/16/18 20:35) Vital Signs (Adult) Q4H (02/16/18 20:35) Activity Bed Rest (02/16/18 20:35) Notify Dr: Other (02/16/18 20:35) Labs Laboratory Tests Test 02/16/18 18:50 White Blood Count 8.1 TH/MM3 Red Blood Count 3.88 MIL/MM3 Hemoglobin 13.1 GM/DL Hematocrit 38.4 % Mean Corpuscular Volume 98.8 FL Mean Corpuscular Hemoglobin 33.7 PG Mean Corpuscular Hemoglobin Concent 34.1 % Red Cell Distribution Width 13.0 % Platelet Count 240 TH/MM3 Mean Platelet Volume 8.4 FL Neutrophils (%) (Auto) 60.0 % Lymphocytes (%) (Auto) 29.8 % Monocytes (%) (Auto) 7.0 % Eosinophils (%) (Auto) 2.7 % Basophils (%) (Auto) 0.5 % Neutrophils # (Auto) 4.9 TH/MM3 Lymphocytes # (Auto) 2.4 TH/MM3 Monocytes # (Auto) 0.6 TH/MM3 Eosinophils # (Auto) 0.2 TH/MM3 Basophils # (Auto) 0.0 TH/MM3 CBC Comment DIFF FINAL Differential Comment Prothrombin Time 9.7 SEC Prothromb Time International Ratio 1.0 RATIO Activated Partial Thromboplast Time 22.9 SEC Blood Urea Nitrogen 18 MG/DL Creatinine 1.00 MG/DL Random Glucose 114 MG/DL Calcium Level 9.3 MG/DL Magnesium Level 2.1 MG/DL Sodium Level 144 MEQ/L Potassium Level 3.6 MEQ/L Chloride Level 109 MEQ/L Carbon Dioxide Level 27.4 MEQ/L Anion Gap 8 MEQ/L Estimat Glomerular Filtration Rate 55 ML/MIN Total Creatine Kinase 87 U/L Troponin I 0.05 NG/ML MDM Medical Decision Making Medical Screen Exam Complete: Yes Emergency Medical Condition: Yes Medical Record Reviewed: Yes Differential Diagnosis A. fib with RVR, osteomyelitis, cellulitis Narrative Course Nursing notes are reviewed EKG shows atrial fibrillation with RVR at a rate of 155 The patient states she has no history of atrial fibrillation and known to her. She follows with Dr. Benítez. She has no chest pain or shortness of breath. She reports people asked her in the past if she has atrial fibrillation. CBC & BMP Diagram 02/16/18 18:50 Calcium Level 9.3, Magnesium Level 2.1 Troponin is 0.[address] Melvin. Patient will be admitted for ongoing monitoring, treatment of A. fib RVR, cardiology evaluation. Diagnosis Primary Impression: Atrial fibrillation with RVR Additional Impressions: Ankle pain, right Qualified Codes: M25.571 - Pain in right ankle and joints of right foot; G89.29 - Other chronic pain Elevated troponin Admitting Information Admitting Physician Requests: Observation Luis Orosco MD Feb 16, 2018 18:51
[2018-02-16] MEDS ORDERED: SODIUM CHLORIDE 0.9% FLUSH 10 ML FLUSH IVF PRN (19:00)
[2018-02-16] MEDS ORDERED: oxyCODONE/ACETAMINOPHEN 5 MG/325 MG TAB PO ONE (19:00)
[2018-02-16 19:08] VITALS: BP 162/120; PULSE 103; RESP 18; O2SAT 98
[2018-02-16 19:08] LABS: AUTOMATED NEUTROPHIL # 4.9 TH/MM3 (1.8-7.7); BASOPHIL % 0.5 % (0.0-2.0); EOSINOPHIL # 0.2 TH/MM3 (0-0.4); EOSINOPHIL % 2.7 % (0.0-4.0); HEMATOCRIT 38.4 % (35.0-46.0); HEMOGLOBIN 13.1 GM/DL (11.6-15.3); LYMPH % 29.8 % (9.0-44.0); LYMPHOCYTE # 2.4 TH/MM3 (1.0-4.8); MEAN CELL VOLUME 98.8 FL (80.0-100.0); MEAN CORPUSCULAR HEMOGLOBIN 33.7 PG (27.0-34.0); MEAN CORPUSCULAR HGB CONC 34.1 % (32.0-36.0); MEAN PLATELET VOLUME 8.4 FL (7.0-11.0); MONOCYTE # 0.6 TH/MM3 (0-0.9); PLATELET COUNT 240 TH/MM3 (150-450); RED BLOOD COUNT 3.88 MIL/MM3 (4.00-5.30); WHITE BLOOD COUNT 8.1 TH/MM3 (4.0-11.0)
[2018-02-16 19:14] VITALS: BP 168/113
[2018-02-16 19:21] LABS: CALCIUM 9.3 MG/DL (8.5-10.1)
[2018-02-16 19:22] LABS: BICARBONATE 27.4 MEQ/L (21.0-32.0); MAGNESIUM 2.1 MG/DL (1.5-2.5)
[2018-02-16] MEDS ORDERED: ROSU1TAB8 PO (19:22)
[2018-02-16] MEDS ORDERED: BIOTCAP PO (19:23)
[2018-02-16 19:24] LABS: PROTHROMBIN TIME - PATIENT 9.7 SEC (9.8-11.6)
[2018-02-16 19:30] LABS: TROPONIN I 0.05 NG/ML (0.02-0.05)
--- NOTE | 2018-02-16 20:00 | RADRPT ---
EXAM DATE/TIME: 02/16/2018 19:24 [facility] COMPARISON: ANKLE RIGHT LIMITED (AP&LAT), March 03, 2017, 10:20. INDICATIONS : Patient had internal fixation hardware removed Tuesday and woke up this morning with pain and swellin g at lateral incision site. MEDICAL HISTORY : Hypertension. SURGICAL HISTORY : ORIF rt ankle ENCOUNTER: Initial ACUITY: 2 days PAIN SCORE: 9/10 LOCATION: Right Ankle FINDINGS: Screws and plate of the distal fibula and the 2 screws of the medial malleolus have all been removed. There is mild lucency of the medullary space of the distal fibula and with associated mild cortical thinning. I don't see a fracture. Lateral soft tissues are mildly swollen and edematous CONCLUSION: Hardware removal as above. No acute fracture is demonstrated. Mild soft tissue swelling, mostly later al. No radiopaque foreign body seen. Rigo Godoy MD on February 16, 2018 at 19:56 Board Certified Radiologist. This report was verified electronically.
--- NOTE | 2018-02-16 20:01 | RADRPT ---
EXAM DATE/TIME: 02/16/2018 19:24 [facility] COMPARISON: CHEST PA & LAT, October 24, 2017, 10:47. INDICATIONS : Patient had internal fixation hardware removed Tuesday and woke up this morning with pain and swellin g at lateral incision site. MEDICAL HISTORY : Hypertension. SURGICAL HISTORY : ORIF rt ankle ENCOUNTER: Initial ACUITY: 2 days PAIN SCORE: 9/10 LOCATION: Right Ankle FINDINGS: A single view of the chest demonstrates the lungs to be symmetrically aerated without evidence of mas s, infiltrate or effusion. The cardiomediastinal contours are unremarkable. Osseous structures are intact. CONCLUSION: No evidence of acute cardiopulmonary disease. Rigo Godoy MD on February 16, 2018 at 19:58 Board Certified Radiologist. This report was verified electronically.
[2018-02-16 20:39] VITALS: BP 150/100; PULSE 89; RESP 18; O2SAT 96
[2018-02-16] MEDS ORDERED: ONDANSETRON HCL 4 MG/2 ML VIAL IVP PRN (20:45)
[2018-02-16] MEDS ORDERED: NALOXONE HCL 0.4 MG/ML AMP IV PUSH PRN (20:45)
[2018-02-16] MEDS ORDERED: ACETAMINOPHEN 325 MG TAB PO PRN (20:45)
[2018-02-16] MEDS ORDERED: SODIUM CHLORIDE 0.9% FLUSH 10 ML FLUSH IV FLUSH PRN (20:45)
[2018-02-16] MEDS: SODIUM CHLORIDE 0.9% FLUSH 10 ML FLUSH IV FLUSH SCH (21:00)
[2018-02-16 21:23] VITALS: BP 133/93; PULSE 81; RESP 20; TEMP 98.1; O2SAT 92
[2018-02-16 23:00] VITALS: PULSE 78
[2018-02-16] MEDS ORDERED: ALPRAZolam 0.5 MG TAB PO SCH (23:15)
[2018-02-16] MEDS: oxyCODONE/ACETAMINOPHEN 7.5 MG/325 MG TAB PO PRN (23:45)
[2018-02-17] VITALS (7 sets, daily range): BP systolic 124–155; BP diastolic 77–98; PULSE 68–76; RESP 18–20; TEMP 96.9–97.5; O2SAT 93–95
[2018-02-17 00:45] LABS: TROPONIN I 0.07 NG/ML (0.02-0.05)
[2018-02-17] MEDS: oxyCODONE/ACETAMINOPHEN 7.5 MG/325 MG TAB PO PRN ×3 (04:25→14:18)
[2018-02-17 06:21] LABS: AUTOMATED NEUTROPHIL # 2.2 TH/MM3 (1.8-7.7); BASOPHIL % 0.8 % (0.0-2.0); EOSINOPHIL # 0.2 TH/MM3 (0-0.4); EOSINOPHIL % 4.7 % (0.0-4.0); HEMATOCRIT 35.7 % (35.0-46.0); HEMOGLOBIN 11.6 GM/DL (11.6-15.3); LYMPH % 41.6 % (9.0-44.0); MEAN CELL VOLUME 99.4 FL (80.0-100.0); MEAN CORPUSCULAR HEMOGLOBIN 32.3 PG (27.0-34.0); MEAN CORPUSCULAR HGB CONC 32.5 % (32.0-36.0); MEAN PLATELET VOLUME 8.9 FL (7.0-11.0); MONO % 8.8 % (0.0-8.0); MONOCYTE # 0.4 TH/MM3 (0-0.9); NEUT % 44.1 % (16.0-70.0); PLATELET COUNT 229 TH/MM3 (150-450); RED BLOOD COUNT 3.59 MIL/MM3 (4.00-5.30); RED CELL DISTRIBUTION WIDTH 13.3 % (11.6-17.2); WHITE BLOOD COUNT 4.8 TH/MM3 (4.0-11.0)
[2018-02-17 06:29] LABS: BICARBONATE 30.1 MEQ/L (21.0-32.0); CALCIUM 8.6 MG/DL (8.5-10.1)
[2018-02-17 06:33] LABS: CREATININE 0.75 MG/DL (0.50-1.00)
[2018-02-17 06:37] LABS: TROPONIN I 0.05 NG/ML (0.02-0.05)
[2018-02-17] MEDS: SODIUM CHLORIDE 0.9% FLUSH 10 ML FLUSH IV FLUSH SCH (08:34)
[2018-02-17] MEDS ORDERED: LOSARTAN 50 MG TAB PO SCH (09:00)
[2018-02-17] MEDS ORDERED: PANTOPRAZOLE SOD 20 MG DELAYED RELEASE TAB PO SCH (09:00)
[2018-02-17] MEDS ORDERED: DIPYRIDAMOLE/ASPIRIN 200 MG/25 MG CAP PO SCH (09:00)
[2018-02-17] MEDS ORDERED: VENLAFAXINE HCL XR 75 MG CAP PO SCH (09:00)
[2018-02-17] MEDS ORDERED: ATORVASTATIN 40 MG TAB PO SCH (09:00)
[2018-02-17] MEDS ORDERED: PILL SPLITTER OTHER PRN (09:15)
--- NOTE | 2018-02-17 09:45 | HHI.HP ---
[facility] Gemini Benítez MD Admission Diagnosis AFIB RVR; R Ankle Pain Diagnoses: (1) Atrial fibrillation with RVR Diagnosis: Principal (2) Right ankle pain Diagnosis: Principal Chief Complaint: Right ankle pain Travel History International Travel<30 Days: No Contact w/Intl Traveler <30 Da: No Traveled to Known Affected Are: No History of Present Illness This is a 67-year-old female with history of CVA, hyperlipidemia, chronic pain who presented to the hospital because of right ankle pain. Patient states that her problems started over 4-6 weeks ago when she fractured her ankle and underwent surgical intervention. Patient is doing well but the hardware started causing her problems and she recently had the hardware removed which she thinks was approximately 2 weeks ago. She went to the Dr. Chang, orthopedics office on Tuesday and had stitches/zuleyka removed. Since that she was doing well until she woke up yesterday morning and when she got out of bed she went to step on her ankle and it was quite painful and she noticed that it was swollen, it did not improve throughout the day so she came to emergency department for evaluation. While the patient was in the emergency department she was found to have an episode of atrial fibrillation with RVR, EKG shows heart rate of 155. No treatment was required. Patient converted back into sinus rhythm with normal heart rate. Because of the onset of atrial fibrillation it was recommended by the ER physician that the patient be observed in the hospital for further evaluation and management. Patient denies any previous episodes of atrial fibrillation, she is not on any blood pressure medication or rhythm medication. Patient denies any chest pain, shortness of breath, dyspnea. Review of Systems Musculoskeletal: COMPLAINS OF: Joint pain, Joint Swelling Except as stated in HPI: all other systems reviewed are Neg Past Family Social History Past Medical History CVA 3 Chronic pain Hyperlipidemia Irritable bowel syndrome Past Surgical History Tonsillectomy Hysterectomy Right ankle surgery Left ankle surgery Appendectomy Reported Medications Reported Meds & Active Scripts Active Percocet (Oxycodone-Acetaminophen) 7.5-325 mg Tab 1 Tab PO Q4H PRN Reported Biotin 5 Mg Cap 5 Mg PO DAILY NEB Rosuvastatin (Rosuvastatin Calcium) 20 Mg Tab 20 Mg PO DAILY [place]-3 Fish Oil/Vitamin (Fish Oil-Cholecalciferol) 1,000-1,000 Mg Cap 1,500 Mg PO DAILY Aggrenox (Dipyridamole/Aspirin) 200-25 Mg Cap 1 Cap PO BID Flexeril (Cyclobenzaprine HCl) 5 Mg Tab 5 Mg PO TID Co Q 10 (Coenzyme Q10 (Ubidecarenone)) 100 Mg Cap 200 Mg PO DAILY Effexor (Venlafaxine HCl) 75 Mg Tab 75 Mg PO DAILY Omeprazole 20 Mg Tab 20 Mg PO DAILY Multiple Vitamin 1 Tab 1 Tab PO DAILY Losartan (Losartan Potassium) 50 Mg Tab 50 Mg PO DAILY Vitamin D (Cholecalciferol) 2,000 Unit Cap 1 Cap PO DAILY Alprazolam 0.5 Mg Tab 0.5 Mg PO HS Allergies: Coded Allergies: erythromycin base (Unverified Allergy, Severe, Rash, 02/16/18) codeine (Unverified Adverse Reaction, Severe, SEVERE N/V, 02/16/18) meperidine (Unverified Adverse Reaction, Severe, SEVERE N/V, 02/16/18) Family History Reviewed and significant for mother with some form of dysphagia, father with Alzheimer's Social History Patient quit smoking 30 years ago, prior to that she smoked three-quarter pack of cigarettes a day since she was 20 years old. Patient states that she drinks 1 glass of wine daily. Denies any illicit drug Physical Exam Vital Signs Vital Signs Date Time Temp Pulse Resp B/P (MAP) Pulse Ox O2 Delivery O2 Flow Rate FiO2 02/17/18 07:56 97.0 73 20 155/98 (117) 95 02/17/18 04:00 97.2 76 20 136/91 (106) 93 02/17/18 00:00 97.4 74 20 154/89 (110) 94 02/16/18 23:00 78 02/16/18 21:23 98.1 81 20 133/93 (106) 92 02/16/18 21:15 02/16/18 20:39 89 18 150/100 (117) 96 Room Air 02/16/18 19:14 168/113 (131) 02/16/18 19:08 103 18 162/120 (134) 98 Room Air 02/16/18 18:34 99.2 130 20 158/94 (115) 94 Physical Exam GENERAL: Well-developed, well-nourished, in no acute distress. alert and orientated HEENT: Head is normocephalic without any lesions or masses noted. Facial features are symmetric. Eyes: Pupils equal round reactive to light. Extraocular muscles are intact. Conjunctivae were clear. Oropharyngeal: Pharynx without any erythema edema. Tongue is midline without deviation. Buccal mucosa is moist without any masses or lesions NECK: Supple without any masses. Trachea midline no deviation. No JVD, no bruits are appreciated CARDIAC: Regular rhythm, regular rate. S1/S2 are heard. No murmurs gallops or rubs. LUNGS: Clear to auscultation bilaterally. No wheeze, rhonchi or rales. No use of accessory muscles on inspiration or expiration. ABDOMEN: Soft, nontender. Nondistended. Bowel sounds heard in all 4 quadrants. No organomegaly or masses. Negative rebound, negative guarding EXTREMITIES: No edema, pulses are equal bilaterally. No cyanosis or clubbing NEUROLOGY: Mood and affect appear appropriate. Cranial nerves II through XII grossly intact. Muscle strength 5/5 in upper and lower extremities bilaterally. Deep tendon reflexes are 2+ in upper and lower extremities bilaterally. RIGHT ANKLE: There is some mild edema noted mainly on the lateral malleolus. However incision sites look rather well. Mild erythema noted from where the sutures and zuleyka were removed. No fluctuance or any significant signs of infection Laboratory Laboratory Tests Test 02/16/18 18:50 02/17/18 00:05 02/17/18 05:07 White Blood Count 8.1 4.8 Red Blood Count 3.88 3.59 Hemoglobin 13.1 11.6 Hematocrit 38.4 35.7 Mean Corpuscular Volume 98.8 99.4 Mean Corpuscular Hemoglobin 33.7 32.3 Mean Corpuscular Hemoglobin Concent 34.1 32.5 Red Cell Distribution Width 13.0 13.3 Platelet Count 240 229 Mean Platelet Volume 8.4 8.9 Neutrophils (%) (Auto) 60.0 44.1 Lymphocytes (%) (Auto) 29.8 41.6 Monocytes (%) (Auto) 7.0 8.8 Eosinophils (%) (Auto) 2.7 4.7 Basophils (%) (Auto) 0.5 0.8 Neutrophils # (Auto) 4.9 2.2 Lymphocytes # (Auto) 2.4 2.0 Monocytes # (Auto) 0.6 0.4 Eosinophils # (Auto) 0.2 0.2 Basophils # (Auto) 0.0 0.0 CBC Comment DIFF FINAL DIFF FINAL Differential Comment Prothrombin Time 9.7 Prothromb Time International Ratio 1.0 Activated Partial Thromboplast Time 22.9 Blood Urea Nitrogen 18 16 Creatinine 1.00 0.75 Random Glucose 114 94 Calcium Level 9.3 8.6 Magnesium Level 2.1 Sodium Level 144 143 Potassium Level 3.6 3.7 Chloride Level 109 108 Carbon Dioxide Level 27.4 30.1 Anion Gap 8 5 Estimat Glomerular Filtration Rate 55 77 Total Creatine Kinase 87 79 68 Troponin I 0.05 0.07 0.05 Result Diagram: 02/17/18 0507 02/17/18 0507 Imaging Last Impressions Chest X-Ray 02/16/181852 Signed Impressions: Service Date/Time: January 19:24 - CONCLUSION: No evidence of acute cardiopulmonary disease. Rigo Godoy MD Ankle X-Ray 02/16/181850 Signed Impressions: Service Date/Time: January 19:24 - CONCLUSION: Hardware removal as above. No acute fracture is demonstrated. Mild soft tissue swelling , mostly lateral. No radiopaque foreign body seen. MD Hayden Toscanoi VTE Risk Assessment Caprini VTE Risk Assessment: Mod/High Risk (score >= 2) Caprini Risk Assessment Model Point Value = 1 Point Value = 2 Point Value = 3 Point Value = 5 Age 41-60 Minor surgery BMI > 25 kg/m2 Swollen legs Varicose veins or History of unexplained or recurrent spontaneous Oral contraceptives or hormone replacement Sepsis (< 1 month) Serious lung disease, including pneumonia (< 1 month) Abnormal pulmonary function Acute myocardial infarction Congestive heart failure (< 1 month) History of inflammatory bowel disease Medical patient at bed rest Age 61-74 Arthroscopic surgery Major open surgery (> 45 min) Laparoscopic surgery (> 45 min) Malignancy Confined to bed (> 72 hours) Immobilizing plaster cast Central venous access Age >= 75 History of VTE Family history of VTE Factor V Leiden Prothrombin [id number] Lupus anticoagulant Anticardiolipin antibodies Elevated serum homocysteine Heparin-induced thrombocytopenia Other congenital or acquired thrombophilia Stroke (< 1 month) Elective arthroplasty Hip, pelvis, or leg fracture Acute spinal cord injury (< 1 month) Prophylaxis Regimen Total Risk Factor Score Risk Level Prophylaxis Regimen 0-1 Low Early ambulation 2 Moderate Order ONE of the following: *Sequential Compression Device (SCD) *Heparin 5000 units SQ BID 3-4 Higher Order ONE of the following medications: *Heparin 5000 units SQ TID *Enoxaparin/Lovenox 40 mg SQ daily (WT < 150 kg, CrCl > 30 mL/min) *Enoxaparin/Lovenox 30 mg SQ daily (WT < 150 kg, CrCl > 10-29 mL/min) *Enoxaparin/Lovenox 30 mg SQ BID (WT < 150 kg, CrCl > 30 mL/min) AND/OR *Sequential Compression Device (SCD) 5 or more Highest Order ONE of the following medications: *Heparin 5000 units SQ TID (Preferred with Epidurals) *Enoxaparin/Lovenox 40 mg SQ daily (WT < 150 kg, CrCl > 30 mL/min) *Enoxaparin/Lovenox 30 mg SQ daily (WT < 150 kg, CrCl > 10-29 mL/min) *Enoxaparin/Lovenox 30 mg SQ BID (WT < 150 kg, CrCl > 30 mL/min) AND *Sequential Compression Device (SCD) Assessment and Plan Assessment and Plan Atrial fibrillation with RVR, paroxysmal -Patient now in sinus rhythm without any medications for conversion -CHADS/VASC: 5 -Start Lopressor 12.5 mg twice daily -Start Xarelto 20 mg daily -Obtain echocardiogram to rule out any valvular disease Right ankle pain -X-rays performed which did not indicate any acute abnormality -continue pain control -Discussed with orthopedist, who indicated continue current pain control, weightbearing as tolerated, follow-up in their office if worsening History of cerebrovascular accident 3 -We will discontinue Aggrenox at this time, patient will be advanced to Xarelto secondary to the paroxysmal atrial fibrillation Chronic pain -Continue home medication DVT prevention -Patient will be on Xarelto Discharge disposition Discharge home in stable condition Activity: Ad edgar. Diet: Healthy heart diet Medication per medication reconciliation Follow-up with primary medical doctor in 1 week Dimitri Simpson Feb 17, 2018 09:45
[2018-02-17] MEDS ORDERED: METOPROLOL TARTRATE 25 MG TAB PO SCH (10:00)
[2018-02-17] MEDS ORDERED: RIVAROXABAN 20 MG TAB PO SCH (10:00)
--- NOTE | 2018-02-17 13:11 | EKG ---
Date Performed: 02/16/2018 Time Performed: 18:44:22 PTAGE: 67 years EKG: ATRIAL FIBRILLATION WITH RAPID VENTRICULAR RESPONSE SEPTAL MYOCARDIAL INFARCTION ABNORMAL E CG Compared to PREVIOUS TRACING atrial fibrillation with rapid response is now present PREVIOUS TRACING : 03/03/2017 07.10 DOCTOR: Parth Eubanks Interpretating Date/Time 02/17/2018 13:09:41
--- NOTE | 2018-02-17 13:11 | EKG ---
Date Performed: 02/17/2018 Time Performed: 00:29:27 PTAGE: 67 years EKG: Sinus rhythm NORMAL ECG Compared to PREVIOUS TRACING sinus rhythm has replaced atrial fibrillation with rapid v response PRE VIOUS TRACIN02/16/2018 18.44 DOCTOR: Parth Eubanks Interpretating Date/Time 02/17/2018 13:10:01
--- NOTE | 2018-02-17 13:45 | EKG ---
Date Performed: 02/17/2018 Time Performed: 06:15:01 PTAGE: 67 years EKG: Sinus rhythm SEPTAL MYOCARDIAL INFARCTION ABNORMAL ECG PREVIOUS TRACING : 02/17/2018 00.29 Since the previous tracing, no significant change noted DOCTOR: Parth Eubanks Interpretating Date/Time 02/17/2018 13:42:44
--- NOTE | 2018-02-17 16:49 | ECHRPT ---
Indication: ATRIAL FIB/FLUTTER CONCLUSIONS Normal left ventricular size. Wall thickness is normal. The left ventricular systolic function is normal with an estimated ejection fraction in the range of 55-60%. The left atrial size is [id number] dilated. No atrial level shunt is demonstrated by color flow Doppler interrogation. The aortic root and proximal ascending aorta are not well visualized. Mild mitral valve regurgitation. Mitral annular calcification is present. Aortic valve sclerosis is present. There is mild tricuspid valve regurgitation. The estimated pulmonary arterial pressure is 28 mmHg. The inferior vena cava was not well visualized. BP: 124 / 77 HR: 74 Rhythm: Sinus MEASUREMENTS (Male / Female) Normal Values Technical Quality:Fair 2D ECHO LVOT Diameter 1.8 cm Aortic Root Diameter 3.2 cm DOPPLER AV Peak Velocity 121.0 cm/s AV Peak Gradient 5.9 mmHg AV Mean Gradient 4.0 mmHg AV Velocity Time Integral 24.2 cm LVOT Peak Velocity 87.2 cm/s LVOT Peak Gradient 3.0 mmHg LVOT Velocity Time Integral 18.5 cm AV Area Cont Eq vti 1.9 cm AV Area Cont Eq pk 1.8 cm Mitral E Point Velocity 70.1 cm/s Mitral A Point Velocity 57.8 cm/s Mitral E to A Ratio 1.2 LV E' Lateral Velocity 7.4 cm/s Mitral E to LV E' Lateral Ratio 9.5 LV E' Septal Velocity 6.4 cm/s Mitral E to LV E' Septal Ratio 10.9 TR Peak Velocity 210.0 cm/s TR Peak Gradient 17.6 mmHg PV Peak Velocity 71.4 cm/s PV Peak Gradient 2.0 mmHg FINDINGS LEFT VENTRICLE Normal left ventricular size. Wall thickness is normal. The left ventricular systolic function is normal with an estimated ejection fraction in the range of 55-60%. RIGHT VENTRICLE Normal right ventricular size and systolic function. LEFT ATRIUM The left atrial size is [id number] dilated. RIGHT ATRIUM The right atrial size is normal. ATRIAL SEPTUM No atrial level shunt is demonstrated by color flow Doppler interrogation. AORTA The aortic root and proximal ascending aorta are not well visualized. MITRAL VALVE Structurally normal mitral valve. Mild mitral valve regurgitation. Mitral annular calcification is present. AORTIC VALVE Aortic valve sclerosis is present. TRICUSPID VALVE There is mild tricuspid valve regurgitation. The estimated pulmonary arterial pressure is 28 mmHg. PULMONARY VALVE No pulmonary valve regurgitation or stenosis. VESSELS The inferior vena cava was not well visualized. PERICARDIUM No pericardial effusion. Silvano Goodrich MD, FACC (Electronically Signed) Final Date:17 February 2018 16:48
[2018-02-17] MEDS ORDERED: XARE20TA PO (16:50)
[2018-02-17] MEDS ORDERED: METO25TA3 PO (16:50)
--- NOTE | 2018-02-17 16:50 | HHI.DCPOC ---
Discharge Care Plan Diagnosis: (1) Atrial fibrillation with RVR (2) Right ankle pain Goals to Promote Your Health * To prevent worsening of your condition and complications * To maintain your health at the optimal level Directions to Meet Your Goals Take your medications as prescribed Follow your dietary instruction Follow activity as directed Keep your appointments as scheduled Take your immunizations and boosters as scheduled If your symptoms worsen call your PCP, if no PCP go to Urgent Care Center or Emergency Room Smoking is Dangerous to Your Health. Avoid second hand smoke Call the 24-hour hour crisis hotline for domestic abuse at Dimitri Simpson Feb 17, 2018 16:50
== END 2018-02-17 17:57 | disposition home or self-care (01) ==
LOC: PHED 18:17 → PHEDA 20:36 → PH3B 21:23
PROVIDERS: ADMIT Hospitalist; ATTEND Hospitalist
DX: I48.0 Paroxysmal atrial fibrillation (principal); M25.571 Pain in right ankle and joints of right foot; G89.29 Other chronic pain; I10 Essential (primary) hypertension; E78.00 Pure hypercholesterolemia, unspecified; K58.9 Irritable bowel syndrome, unspecified; R94.31 Abnormal electrocardiogram [ECG] [EKG]; F41.9 Anxiety disorder, unspecified; F32.9 Major depressive disorder, single episode, unspecified; M19.90 Unspecified osteoarthritis, unspecified site; Z86.73 Personal history of transient ischemic attack (TIA), and cerebral infarction without residual deficits; Z87.891 Personal history of nicotine dependence; Z79.899 Other long term (current) drug therapy
CPT/HCPCS: 71045; 73610; 80048; 82550; 83735; 84484; 85025; 85610; 85730; 93005; 93306; 97162; 99285; G0378; G8987; G8988

== ENCOUNTER 2018-02-19 09:50 | Emergency (ER) | payer MEDICARE, MEDICAID ==
[~2018-02-19] VITALS: Ht 162.6 cm; Wt 76.0 kg
[~2018-02-19 09:50] MED LIST changes: -AGGR20025 PO; +BIOTCAP PO; +METO25TA3 PO; +ROSU1TAB8 PO; -SIMV20TA PO; -VENTAER INH; +XARE20TA PO; -ZITHTAB PO
[2018-02-19 09:56] VITALS: BP 182/103; PULSE 81; RESP 17; TEMP 97.9; O2SAT 97
[2018-02-19 11:00] VITALS: BP 177/86; PULSE 78; PULSE 89; RESP 16; RESP 17; TEMP 98; O2SAT 98; O2SAT 99
[2018-02-19] MEDS ORDERED: ONDANSETRON HCL 4 MG/2 ML VIAL IV PUSH ONE (11:00)
[2018-02-19] MEDS ORDERED: SODIUM CHLOR 0.9% 1000 ML INJ 1,000 ML IV SCH (11:00)
[2018-02-19 11:18] LABS: AUTOMATED NEUTROPHIL # 2.9 TH/MM3 (1.8-7.7); BASOPHIL % 0.9 % (0.0-2.0); EOSINOPHIL # 0.1 TH/MM3 (0-0.4); EOSINOPHIL % 2.1 % (0.0-4.0); HEMATOCRIT 36.5 % (35.0-46.0); HEMOGLOBIN 12.4 GM/DL (11.6-15.3); LYMPH % 28.7 % (9.0-44.0); LYMPHOCYTE # 1.4 TH/MM3 (1.0-4.8); MEAN CELL VOLUME 99.7 FL (80.0-100.0); MEAN CORPUSCULAR HEMOGLOBIN 33.8 PG (27.0-34.0); MEAN CORPUSCULAR HGB CONC 33.9 % (32.0-36.0); MEAN PLATELET VOLUME 9.5 FL (7.0-11.0); MONO % 9.2 % (0.0-8.0); MONOCYTE # 0.4 TH/MM3 (0-0.9); NEUT % 59.1 % (16.0-70.0); PLATELET COUNT 232 TH/MM3 (150-450); RED BLOOD COUNT 3.67 MIL/MM3 (4.00-5.30); RED CELL DISTRIBUTION WIDTH 13.1 % (11.6-17.2); WHITE BLOOD COUNT 4.8 TH/MM3 (4.0-11.0)
--- NOTE | 2018-02-19 11:23 | PD ---
HPI Chief Complaint: GI Complaint Time Seen by Provider: 10:31 Travel History International Travel<30 days: No Contact w/Intl Traveler<30days: No Traveled to known affect area: No History of Present Illness HPI 67-year-old female complains of nausea. Patient states that the nausea started this morning. Patient denies any headache. Patient denies any sore throat coughing congestion. Patient denies abdominal pain. Patient denies any dysuria frequency. Patient denies any fever chills. Patient denies any chest pain or shortness of breath. Patient has history of CVA, hyperlipidemia, chronic pain. Patient has history of right ankle fracture status post right ankle surgery about 6 weeks ago. Patient was seen by orthopedist about 2 weeks ago and had right ankle surgery for hardware removal. Patient states that she was seen by orthopedist 5 days ago for suture removal of the right ankle. Patient was admitted to [facility] February 16 and discharged February 17 for atrial fibrillation with RVR. Patient was advised to start on Lopressor and Xarelto and discharged. Patient has been taking Xanax, Flexeril and Percocet at home. Patient took 2 Percocet last night for pain. PFSH Past Medical History Hx Anticoagulant Therapy: Yes (AGGRENOX) Arthritis: Yes (RIGHT SHOULDER) Asthma: No Autoimmune Disease: No Blood Disorders: No Anxiety: Yes Depression: Yes Heart Rhythm Problems: No Cancer: No Cardiovascular Problems: Yes High Cholesterol: Yes Chest Pain: No Congestive Heart Failure: No COPD: No Cerebrovascular Accident: Yes (CVA X 3) Diabetes: No Diminished Hearing: No Endocrine: No Glaucoma: No Genitourinary: Yes Headaches: No Hepatitis: No Hiatal Hernia: No Hypertension: Yes Immune Disorder: No Kidney Stones: Yes Medical other: Yes (STROKE; ARTHRITIS) Musculoskeletal: Yes Neurologic: Yes (CVA, NECK) Psychiatric: No Reproductive: No Respiratory: No Migraines: Yes Myocardial Infarction: No Renal Failure: No Seizures: No Sleep Apnea: No Thyroid Disease: No Tetanus Vaccination: > 5 Years Influenza Vaccination: No ?: Not Menopausal: Yes : 4 Para: 1 Miscarriage: 3 Past Surgical History Abdominal Surgery: Yes (hysterectomy ) Appendectomy: Yes Cardiac Surgery: No Ear Surgery: No Endocrine Surgery: No Eye Surgery: No Genitourinary Surgery: No Gynecologic Surgery: Yes (HYSTERECTOMY) Hysterectomy: Yes Neurologic Surgery: No Oral Surgery: Yes (TONSILLS) Thoracic Surgery: No Tonsillectomy: Yes Other Surgery: Yes Social History Alcohol Use: Yes (1-2 GLASSES WINE DAILY) Tobacco Use: No (1984) Substance Use: No Allergies-Medications (Allergen,Severity, Reaction): Coded Allergies: erythromycin base (Unverified Allergy, Intermediate, Rash, 02/19/18) codeine (Unverified Adverse Reaction, Intermediate, SEVERE N/V, 02/19/18) meperidine (Unverified Adverse Reaction, Intermediate, SEVERE N/V, 02/19/18 ) Reported Meds & Prescriptions Reported Meds & Active Scripts Active Zofran Odt (Ondansetron Odt) 4 Mg Tab 4 Mg SL Q6HR PRN Metoprolol Tartrate 25 Mg Tab 12.5 Mg PO Q12HR 30 Days Xarelto (Rivaroxaban) 20 Mg Tab 20 Mg PO DAILY Percocet (Oxycodone-Acetaminophen) 7.5-325 mg Tab 1 Tab PO Q4H PRN Reported Biotin 5 Mg Cap 5 Mg PO DAILY NEB Rosuvastatin (Rosuvastatin Calcium) 20 Mg Tab 20 Mg PO DAILY [place]-3 Fish Oil/Vitamin (Fish Oil-Cholecalciferol) 1,000-1,000 Mg Cap 1,500 Mg PO DAILY Flexeril (Cyclobenzaprine HCl) 5 Mg Tab 5 Mg PO TID Co Q 10 (Coenzyme Q10 (Ubidecarenone)) 100 Mg Cap 200 Mg PO DAILY Effexor (Venlafaxine HCl) 75 Mg Tab 75 Mg PO DAILY Omeprazole 20 Mg Tab 20 Mg PO DAILY Multiple Vitamin 1 Tab 1 Tab PO DAILY Losartan (Losartan Potassium) 50 Mg Tab 50 Mg PO DAILY Vitamin D (Cholecalciferol) 2,000 Unit Cap 1 Cap PO DAILY Alprazolam 0.5 Mg Tab 0.5 Mg PO HS Physical Exam Narrative GENERAL: Well-nourished, well-developed patient. SKIN: Focused skin assessment warm/dry. HEAD: Normocephalic. EYES: No scleral icterus. No injection or drainage. NECK: Supple, trachea midline. No JVD or lymphadenopathy. CARDIOVASCULAR: Regular rate and rhythm without murmurs, gallops, or rubs. RESPIRATORY: Breath sounds equal bilaterally. No accessory muscle use. GASTROINTESTINAL: Abdomen soft, non-tender, nondistended. MUSCULOSKELETAL: No cyanosis, or edema. BACK: Nontender without obvious deformity. No CVA tenderness. Well-healed scar right ankle status post surgery. Neurologic exam normal. Data Data Last Documented VS Vital Signs Date Time Temp Pulse Resp B/P (MAP) Pulse Ox O2 Delivery O2 Flow Rate FiO2 02/19/18 13:10 97.8 78 16 150/81 (104) 99 02/19/18 11:00 Room Air Orders Orders Electrocardiogram (02/19/18 10:51) Complete Blood Count With Diff (02/19/18 10:51) Comprehensive Metabolic Panel (02/19/18 10:51) Urinalysis - C+S If Indicated (02/19/18 10:51) Iv Access Insert/Monitor (02/19/18 10:51) Ecg Monitoring (02/19/18 10:51) Oximetry (02/19/18 10:51) Sodium Chlor 0.9% 1000 Ml Inj (Ns 1000 M (02/19/18 11:00) Ondansetron Inj (Zofran Inj) (02/19/18 11:00) Ed Discharge Order (02/19/18 12:45) Labs Laboratory Tests Test 02/19/18 11:00 02/19/18 11:20 White Blood Count 4.8 TH/MM3 Red Blood Count 3.67 MIL/MM3 Hemoglobin 12.4 GM/DL Hematocrit 36.5 % Mean Corpuscular Volume 99.7 FL Mean Corpuscular Hemoglobin 33.8 PG Mean Corpuscular Hemoglobin Concent 33.9 % Red Cell Distribution Width 13.1 % Platelet Count 232 TH/MM3 Mean Platelet Volume 9.5 FL Neutrophils (%) (Auto) 59.1 % Lymphocytes (%) (Auto) 28.7 % Monocytes (%) (Auto) 9.2 % Eosinophils (%) (Auto) 2.1 % Basophils (%) (Auto) 0.9 % Neutrophils # (Auto) 2.9 TH/MM3 Lymphocytes # (Auto) 1.4 TH/MM3 Monocytes # (Auto) 0.4 TH/MM3 Eosinophils # (Auto) 0.1 TH/MM3 Basophils # (Auto) 0.0 TH/MM3 CBC Comment DIFF FINAL Differential Comment Blood Urea Nitrogen 9 MG/DL Creatinine 0.77 MG/DL Random Glucose 105 MG/DL Total Protein 7.0 GM/DL Albumin 3.6 GM/DL Calcium Level 8.8 MG/DL Alkaline Phosphatase 83 U/L Aspartate Amino Transf (AST/SGOT) 48 U/L Alanine Aminotransferase (ALT/SGPT) 37 U/L Total Bilirubin 0.8 MG/DL Sodium Level 141 MEQ/L Potassium Level 3.6 MEQ/L Chloride Level 104 MEQ/L Carbon Dioxide Level 29.2 MEQ/L Anion Gap 8 MEQ/L Estimat Glomerular Filtration Rate 75 ML/MIN Urine Color LIGHT-YELLOW Urine Turbidity CLEAR Urine pH 8.0 Urine Specific [place] 1.008 Urine Protein NEG mg/dL Urine Glucose (UA) NEG mg/dL Urine Ketones NEG mg/dL Urine Occult Blood NEG Urine Nitrite NEG Urine Bilirubin NEG Urine Urobilinogen LESS THAN 2.0 MG/DL Urine Leukocyte Esterase NEG Urine RBC 1 /hpf Urine WBC 1 /hpf Urine Bacteria RARE /hpf Microscopic Urinalysis Comment CULT NOT INDICATED MDM Medical Decision Making Medical Screen Exam Complete: Yes Emergency Medical Condition: Yes Interpretation(s) CBC within normal limits. CMP within normal limits. UA is negative. Differential Diagnosis Differential diagnosis including medication side effect, dehydration, electrolyte imbalance, UTI. Narrative Course 67-year-old female with nausea. Patient is on chronic pain medication. Normal saline solution 1 25 cc an hour. Zofran 4 mg IV. Diagnosis Primary Impression: Side effect of medication Patient Instructions: General Instructions Additional Instructions: Zofran as needed for nausea. Follow-up with personal physician. Advised patient to discuss pain medications with her physician. Med/Other Pt SpecificInfo: Prescription(s) given Scripts Ondansetron Odt (Zofran Odt) 4 Mg Tab 4 MG SL Q6HR Y for Nausea/Vomiting, #10 TAB 0 Refills Prov: Nehemias Manzano MD 02/19/18 Disposition: 01 DISCHARGE HOME Condition: Stable Nehemias Manzano MD Feb 19, 2018 11:23
[2018-02-19 11:38] LABS: ALBUMIN 3.6 GM/DL (3.4-5.0); ALT (GPT) 37 U/L (10-53); AST (GOT) 48 U/L (15-37); BICARBONATE 29.2 MEQ/L (21.0-32.0); BLOOD UREA NITROGEN 9 MG/DL (7-18); CALCIUM 8.8 MG/DL (8.5-10.1); CHLORIDE 104 MEQ/L (98-107); CREATININE 0.77 MG/DL (0.50-1.00); GLOMERULAR FILTRATION RATE 75 ML/MIN (>89); GLUCOSE,RANDOM 105 MG/DL (74-106); SODIUM (NA) 141 MEQ/L (136-145)
[2018-02-19 11:40] LABS: ALKALINE PHOSPHATASE 83 U/L (45-117); TOTAL BILIRUBIN ADULT 0.8 MG/DL (0.2-1.0)
[2018-02-19 12:08] LABS: BACTERIA, URINE RARE /hpf; BILIRUBIN, URINE NEG (NEG); BLOOD, URINE NEG (NEG); GLUCOSE,URINE NEG (NEG); KETONE, URINE NEG (NEG); NITRITE,URINE NEG (NEG); URINE COLOR LIGHT-YELLOW (YELLW/STRAW); URINE LEUKOCYTE ESTERASE NEG (NEG)
[2018-02-19] MEDS ORDERED: ZOFR4TAB3 SL (12:18)
[2018-02-19 13:10] VITALS: BP 150/81; TEMP 97.8
--- NOTE | 2018-02-19 14:10 | EKG ---
Date Performed: 02/19/2018 Time Performed: 11:07:44 PTAGE: 67 years EKG: Sinus rhythm NON-SPECIFIC ST/T WAVE CHANGES PREVIOUS TRACING : 02/17/2018 06.15 Since the previous tracing, no significant change not ed DOCTOR: Christophe Orosco Interpretating Date/Time 02/19/2018 14:08:38
== END 2018-02-19 13:11 | disposition home or self-care (01) ==
LOC: NEPC 09:50
DX: R11.0 Nausea (principal); T40.2X5A Adverse effect of other opioids, initial encounter; E78.5 Hyperlipidemia, unspecified; G89.29 Other chronic pain; F32.9 Major depressive disorder, single episode, unspecified; F41.9 Anxiety disorder, unspecified; I10 Essential (primary) hypertension; I48.91 Unspecified atrial fibrillation; Z86.73 Personal history of transient ischemic attack (TIA), and cerebral infarction without residual deficits
CPT/HCPCS: 80053; 81001; 85025; 93005; 96361; 96374; 99284; J2405; J7030